=== PATIENT | male | born 1965 | race Caucasian/White ===

== ENCOUNTER → 2024-01-27 | Outpatient (CLI) | payer BC, SELFPAY ==
--- NOTE | 2024-01-27 11:42 | RAD_ITS ---
INDICATION: right knee pain EXAMINATION/TECHNIQUE: X-RAY - RIGHT XR Knee Complete 4 Views or More 4 VIEWS COMPARISON: No relevant prior comparison study available FINDINGS: SOFT TISSUES: No soft tissue swelling or gas. No radiopaque foreign body. BONES/JOINTS: Mild degenerative arthrosis. Small joint effusion.. No sclerotic or destructive changes observed. RAD/Knee 4 or More Views IMPRESSION: Mild degenerative arthrosis. Small joint effusion. Electronically Signed: Erick Esqueda MD at 2:45 EDT ,
[2024-01-27 15:18] LABS: Absolute Lymphocyte Count 1.52 X10^3/uL (0.83-4.51); Absolute Neutrophil Count 5.8 X10^3/uL (2.0-7.7); Basophil# 0.06 X10^3/uL; Basophil% 0.7 % (0-1); Eosinophil# 0.31 X10^3/uL; Eosinophils% 3.7 % (0-5); Hemoglobin 15.1 g/dL (13.0-16.5); Lymphocyte # 1.52 X10^3/ul (0.83-4.51); Lymphocyte % 18.1 % (19-41); Mean Corp Hgb Conc 33.6 g/dL (32-36); Mean Corpuscular Hgb 29.8 pg (27.0-32.0); Mean Corpuscular Volume 88.8 fL (80-94); Mean Platelet Vol. 9.9 fl (6.2-12.0); Monocyte% 8.3 % (0-10); NRBC Flagged by Analyzer 0 % (0-5); Neutrophil # 5.78 X10^3/uL (2.7-7.7); Neutrophil % 68.8 % (47-70); Platelet Count 243 K/mm3 (150-450); RBC Distribution Width CV 13.8 % (11.6-14.6); RBC Distribution Width SD 44.6 fl (35.1-43.9); Red Blood Count 5.07 M/mm3 (4.6-6.2); White Blood Count 8.4 K/mm3 (4.4-11.0)
[2024-01-27 15:45] LABS: Vitamin D,25 Hydroxy 12.4 ng/mL
[2024-01-27 15:54] LABS: ALB/GLOB Ratio 0.8 RATIO (0.9-2.4); AST(SGOT) 24 U/L (15-37); Alanine Aminotransfer ALT/SGPT 26 U/L (16-61); Albumin, Serum 3.4 g/dL (3.2-5.0); Alkaline Phosphatase 69 U/L (45-117); Anion Gap 7 (5-15); BUN 7 mg/dL (7-18); BUN/Creat Ratio 8.9 RATIO (10-20); Calcium,Total 9.3 mg/dL (8.5-10.1); Chloride 95 mmol/L (98-107); Cholesterol 142 mg/dL (200); Creatinine, Serum 0.79 mg/dL (0.70-1.30); EST Glomerular Filtration Rate 107 mL/min (>60); Est Glom Filt Rate - Afr Amer 130 mL/min (>60); Globulin 4.1 g/dL (2.2-4.2); Glucose 75 mg/dL (74-106); High Density Lipoprotein 45 mg/dL; Potassium 3.4 mmol/L (3.5-5.1); Protein, Total 7.5 g/dL (6.4-8.2); Sodium Level 131 mmol/L (136-145); T4 Free Direct 0.86 ng/dL (0.76-1.46); Thyroid Stim Hormone (TSH) 1.54 uIU/mL (0.358-3.74); Triglycerides 105 mg/dL; Very Low Density Lipoprotein 21 mg/dL (5-40)
[2024-01-30 12:08] LABS: ANTINUCLEAR ANTIBODIES DIRECT Positive (Negative)
== END | disposition home or self-care (01) ==
LOC: MTLAB 11:33
PROVIDERS: PCP Family Medicine; Referring Provider Family Medicine; Visit Provider Family Medicine
DX: I10 Essential (primary) hypertension (principal); E66.01 Morbid (severe) obesity due to excess calories; L40.9 Psoriasis, unspecified; M25.561 Pain in right knee
CPT/HCPCS: 36415; 73564; 80053; 80061; 82306; 84439; 84443; 85025; 86038

== ENCOUNTER → 2024-02-03 | Outpatient (CLI) | payer BC, SELFPAY ==
[2024-02-03 16:08] LABS: Erythrocyte Sedimentation Rate 20 mm/hr (0-20)
[2024-02-03 16:14] LABS: Rheumatoid Factor < 10.0 IU/mL (<15)
[2024-02-06 16:09] LABS: Anti-Cardiolipin Ab, IgG, Qn < 9 GPL U/mL (0-14); Anti-Cardiolipin Ab, IgM, Qn 27 MPL U/mL (0-12)
[2024-02-08 15:09] LABS: Alpha Antitrypsin Serum 174 mg/dL (101-187); Anti-Histone Abs 0.6 Units (0.0-0.9); Anti-Jo <0.2 AI (0.0-0.9); Anti-Scleroderma-70 AB <0.2 AI (0.0-0.9); Anti-dsDNA Ab <1 IU/mL (0-9); SJOGREN'S Anti-SS-A test < 0.2 AI (0.0-0.9); SJOGREN'S Anti-SS-B test < 0.2 AI (0.0-0.9); Smith Ab <0.2 AI (0.0-0.9)
== END | disposition home or self-care (01) ==
LOC: MFPLAB 12:04
PROVIDERS: PCP Family Medicine; Visit Provider Family Medicine
DX: R76.8 Other specified abnormal immunological findings in serum (principal); R53.83 Other fatigue
CPT/HCPCS: 36415; 82103; 84403; 85652; 86147; 86225; 86235; 86431

== ENCOUNTER → 2024-02-21 | Outpatient (CLI) | payer BC, SELFPAY ==
[2024-02-21 11:53] LABS: Anion Gap 6 (5-15); BUN 7 mg/dL (7-18); BUN/Creat Ratio 9.2 RATIO (10-20); Calcium,Total 9.1 mg/dL (8.5-10.1); Chloride 97 mmol/L (98-107); Creatinine, Serum 0.76 mg/dL (0.70-1.30); EST Glomerular Filtration Rate 111 mL/min (>60); Est Glom Filt Rate - Afr Amer 134 mL/min (>60); Glucose 100 mg/dL (74-106); Potassium 3.8 mmol/L (3.5-5.1); Sodium Level 132 mmol/L (136-145)
== END | disposition home or self-care (01) ==
LOC: LAB 11:12
PROVIDERS: PCP Family Medicine; Referring Provider Internal Medicine Cardiovascular Disease; Visit Provider Internal Medicine Cardiovascular Disease
DX: R06.02 Shortness of breath (principal); R53.83 Other fatigue; I10 Essential (primary) hypertension
CPT/HCPCS: 36415; 80048; 83880

== ENCOUNTER → 2024-02-29 | Outpatient (CLI) | payer BC, SELFPAY ==
--- NOTE | 2024-02-29 09:56 | ECHOCS_ITS ---
Reason For Study: SHORTNESS OF BREATH Procedure This was a 2D Doppler, Color Flow transthoracic echocardiogram. The study was technically difficult. Contrast injection was performed. Exam performed in department. Left Ventricle Normal LV size. Left ventricular systolic function is normal. The left ventricular ejection fraction is 55 %. No regional wall motion abnormalities noted. Right Ventricle Normal RV size. Normal systolic function. Atria Normal left atrium. Normal right atrium. Mitral Valve Normal mitral valve. Tricuspid Valve Normal tricuspid valve. Aortic Valve The aortic valve is not well visualized. Great Vessels Normal aortic root. The pulmonary artery is normal size. Normal inferior vena cava. Pericardium/Pleural No pericardial effusion. Medication 22 gauge I.V. with prn adaptor inserted into right arm. Diluted definity 2ml given slow IV push to enhance endocardial definition. MMode/2D Measurements & Calculations LVIDd: 3.8 cm IVSd: 1.4 cm LVOT diam: 2.0 cm LVIDs: 2.2 cm LVPWd: 1.3 cm LVOT area: 3.0 cm2 RVDd: 3.4 cm FS: 41.5 % Ao root diam: 3.4 cm LAV(MOD-bp): 40.1 ml LVAd ap4: 37.4 cm2 LAV(MOD-bp) Indexed: 15.4 ml/m2 LVLd ap4: 9.3 cm LAV(MOD-sp2): 38.0 ml EDV(MOD-sp4): 123.2 ml LAV(MOD-sp4): 41.1 ml EDV(sp4-el): 127.5 ml LVAs ap4: 23.8 cm2 LVLs ap4: 7.9 cm ESV(MOD-sp4): 58.7 ml ESV(sp4-el): 60.7 ml EF(MOD-sp4): 52.3 % EF(sp4-el): 52.4 % LVAd ap2: 36.9 cm2 SV(MOD-sp4): 64.5 ml SV(MOD-sp2): 62.7 ml LVLd ap2: 9.3 cm EDV(MOD-sp2): 119.5 ml EDV(sp2-el): 124.3 ml LVAs ap2: 23.0 cm2 LVLs ap2: 7.9 cm ESV(MOD-sp2): 56.8 ml ESV(sp2-el): 57.0 ml EF(MOD-sp2): 52.5 % SV(sp4-el): 66.8 ml LA dimension(2D): 4.2 cm LA A4 area: 16.2 cm2 RA A4 area: 11.1 cm2 TAPSE: 1.9 cm Time Measurements MV dec time: 0.25 sec Doppler Measurements & Calculations MV E max tawanda: 56.9 cm/sec Lat Peak E' [place]: 10.7 cm/sec Med Peak E' [place]: 7.1 cm/sec MV A max t[place]: 79.9 cm/sec E/E' lat: 5.3 E/E' med: 8.0 MV E/A: 0.71 Ao V2 max: 122.5 cm/sec LV V1 max: 86.7 cm/sec MV dec slope: 227.8 cm/sec2 Ao max P.0 mmHg LV V1 max P.0 mmHg Ao V2 mean: 91.9 cm/sec LV V1 mean P.1 mmHg Ao mean P.8 mmHg LV V1 mean: 70.1 cm/sec Ao V2 VTI: 23.3 cm LV V1 VTI: 16.0 cm AV (velocity ratio): 0.69 KEILA(I,D): 2.1 cm2 KEILA(V,D): 2.1 cm2 SV(LVOT): 48.3 ml PA V2 max: 92.1 cm/sec PA max PG (full): 1.9 mmHg ECHO/Echo Complete W/ Contrast Interpretation Summary Normal LV size. Left ventricular systolic function is normal. The left ventricular ejection fraction is 55 %. Contrast injection was performed. Ordering Physician: Zunilda Prieto Referring Physician: Znuilda Prieto Performed By: Daisy Rosales RDCS
== END | disposition home or self-care (01) ==
PROVIDERS: PCP Family Medicine; Referring Provider Family Medicine; Visit Provider Family Medicine
DX: R06.02 Shortness of breath (principal)
CPT/HCPCS: 93306; Q9957; A4216; C8929

== ENCOUNTER → 2024-04-02 | Outpatient (CLI) | payer BC, SELFPAY ==
--- NOTE | 2024-04-02 12:46 | STRESSREP_ITS ---
Stress Test Report Date: 04/02/2024 Procedure: Pharmacologic stress nuclear imaging study Indications: Dyspnea on exertion Consent: Per the patient Procedure: The patient underwent pharmacologic (Regadenoson 0.4mg ) evaluation with a peak heart rate of 96 beats per minute (59%predicted maximal heart rate) and a peak blood pressure of 164/90 mmHg. The baseline ECG demonstrated sinus rhythm. The peak pharmacologic ECG demonstrated no ischemic changes. There were no cardiac dysrhythmias pretest, during pharmacologic infusion, or recovery. There was no complaint of chest discomfort during pharmacologic infusion or recovery. The patient was injected with 15.0 millicuries of technetium 99m Cardiolite and subsequently rest SPECT Cardiolite nuclear imaging was obtained in the horizontal long, vertical long, and short axis views. The patient underwent pharmacologic (Regadenoson) evaluation. The patient was injected with 45.0 millicuries of technetium 99m Cardiolite and subsequently stress SPECT Cardiolite nuclear imaging was obtained in the horizontal long, vertical long, and short axis views. A gated Cardiolite study at peak stress was obtained. The examination was stopped secondary to completion of protocol. Rest and stress SPECT Cardiolite nuclear imaging status post realignment, normalization, and attenuation correction demonstrate no fixed or reversible perfusion defects. There is end systolic thickening and brightening. The gated Cardiolite study demonstrates myocardial thickening and inward wall motion. The reported LVEF is 62%. Impression: 1. Pharmacologic (Regadenoson) evaluation 2. Peak pharmacologic ECG with no ischemic changes. 3. There were no cardiac dysrhythmias pretest, during pharmacologic infusion, or recovery. 5. Rest and stress SPECT Cardiolite nuclear imaging demonstrate relative uniform tracer uptake and myocardial perfusion appearing within normal limits. 6. The gated Cardiolite study reports an LVEF of 62%. This note was generated with [employer] software. It may contain incorrect words, spelling, and punctuation that were not noted in checking the note before signing.
== END | disposition home or self-care (01) ==
PROVIDERS: PCP Family Medicine; Referring Provider Internal Medicine Cardiovascular Disease; Visit Provider Internal Medicine Cardiovascular Disease
DX: R06.02 Shortness of breath (principal); E66.01 Morbid (severe) obesity due to excess calories; Z68.43 Body mass index [BMI] 50.0-59.9, adult; R53.83 Other fatigue; I10 Essential (primary) hypertension; G47.33 Obstructive sleep apnea (adult) (pediatric); E78.5 Hyperlipidemia, unspecified
CPT/HCPCS: 78452; 93017; A9500; A4216; J2785

== ENCOUNTER → 2024-11-15 | Outpatient (CLI) | payer BC, SELFPAY ==
--- NOTE | 2024-11-15 13:32 | MRI_ITS ---
EXAM: Noncontrast MRI of the right knee. CLINICAL HISTORY: Right knee pain for 1 year. No specific injury. Osteoarthritis. COMPARISON: None available. TECHNIQUE: Multi planar, multisequence MRI images of the right knee were obtained without IV contrast. FINDINGS: The patellar ligament and included distal quadriceps tendon are intact. No acute fracture or dislocation of the right knee. There is mild edema in the prepatellar subcutaneous fat. Small joint effusion. There is 7 mm of lateral patellar subluxation with mild lateral patellar tilt. The patellar retinacula and popliteus muscle/tendon are intact. No soft tissue mass or drainable fluid collection of the right knee. No sizable popliteal cyst. No evidence of transient patellar dislocation. The cruciate and collateral ligaments are intact. Mild articular cartilage thinning of the lateral compartment. Moderate to high- grade articular cartilage loss/thinning involving the weight-bearing surface medial femoral condyle. No osteochondral lesion is demonstrated. Moderate articular cartilage irregularity/thinning involving the patella/patellar apex. There is blunting of the free edge body segment lateral meniscus image 11 of the coronal T2 fat saturated sequence, suggesting tiny radial tear. The lateral meniscus is otherwise intact. There is a horizontally oriented area of abnormal increased signal through the body segment and posterior horn medial meniscus on images 11-13 of the coronal T2 sequence, suspicious for medial meniscal tear. No flipped meniscal fragment. MRI/Lower Ext Joint Only (Routine) IMPRESSION: No acute bony abnormality of the right knee. Small joint effusion. No internal ligamentous derangement. Blunting of the free edge of the body segment lateral meniscus, suspicious for a tiny radial tear. There is a horizontally oriented tear of the posterior horn/body segment junction medial meniscus. Moderate articular cartilage loss/thinning involving the patella/patellar apex. High-grade articular cartilage loss/thinning of the weight-bearing surface medial femoral condyle. Reading Location: [facility]
== END | disposition home or self-care (01) ==
LOC: MRI 13:15
PROVIDERS: PCP Family Medicine; Referring Provider Specialist; Visit Provider Specialist
DX: M25.561 Pain in right knee (principal); M17.11 Unilateral primary osteoarthritis, right knee
CPT/HCPCS: 73721

== ENCOUNTER → 2024-12-04 | Outpatient (CLI) | payer BC, SELFPAY ==
--- NOTE | 2024-12-04 16:19 | RAD_ITS ---
PROCEDURE: KNEE 4 OR MORE VIEWS 12/04/2024 REASON FOR EXAM: KNEE PAIN TECHNIQUE: 4 view(s) of the left knee COMPARISON: None. FINDINGS: Mild tricompartmental changes of degenerative joint disease. Minimal suprapatellar knee joint effusion. No fracture or dislocation is seen. No lytic or blastic aggressive bone lesion is identified. RAD/Knee 4 or More Views IMPRESSION: No radiographic evidence for acute abnormality. Mild tricompartmental changes of degenerative joint disease. Reading Location: [facility]
== END | disposition home or self-care (01) ==
LOC: MTLAB 16:17 → MTRAD 16:18
PROVIDERS: PCP Family Medicine; Referring Provider Family Medicine; Visit Provider Family Medicine
DX: M25.562 Pain in left knee (principal)
CPT/HCPCS: 73564

== ENCOUNTER → 2025-05-24 | Outpatient (CLI) | payer OTHER, SELFPAY ==
[2025-05-24 19:22] LABS: Hematocrit 43.7 % (40-54); Hemoglobin 14.3 g/dL (13.0-16.5); Immature Granulocytes Count 0.040 X10^3/uL (0.0-0.0); Mean Corp Hgb Conc 32.7 g/dL (32-36); Mean Corpuscular Volume 83.4 fL (80-94); Mean Platelet Vol. 11.0 fl (6.2-12.0); NRBC Flagged by Analyzer 0 % (0-5); Platelet Count 250 K/mm3 (150-450); RBC Distribution Width CV 13.6 % (11.6-14.6); RBC Distribution Width SD 41.4 fl (35.1-43.9); Red Blood Count 5.24 M/mm3 (4.6-6.2); White Blood Count 10.5 K/mm3 (4.4-11.0)
[2025-05-24 19:36] LABS: AST(SGOT) 20 U/L (<=37); Alanine Aminotransfer ALT/SGPT 16 U/L (<=46); Albumin, Serum 4.0 g/dL (3.4-4.8); Alkaline Phosphatase 76 U/L (40-129); Anion Gap 14 (5-15); BUN 14 mg/dL (4-19); BUN/Creat Ratio 16.4 RATIO (10-20); Calcium,Total 9.1 mg/dL (7.6-11.0); Carbon Dioxide 25.0 mmol/L (21.0-32.0); Chloride 101 mmol/L (98-108); Cholesterol 107 mg/dL (<=200); Globulin 2.1 g/dL (2.2-4.2); Glucose 80 mg/dL (70-99); Low Density Lipoprotein Calc. 56 mg/dL; Potassium 3.4 mmol/L (3.3-5.1); Triglycerides 90 mg/dL; Very Low Density Lipoprotein 18 mg/dL (5-40); cholesterol:hdl ratio screen 3.26
== END | disposition home or self-care (01) ==
PROVIDERS: PCP Family Medicine; Visit Provider Family Medicine
DX: E87.1 Hypo-osmolality and hyponatremia (principal); E87.6 Hypokalemia
CPT/HCPCS: 36415; 80053; 80061; 85025